=== PATIENT | male | born 1955 | race Asian ===

== ENCOUNTER 2017-11-08 05:17 | Day surgery (SDC) | payer OTHER ==
[2017-11-07 15:29] VITALS: BMI 21.4
[~2017-11-08 05:17] MED LIST: BUPIVACAINE HCL/PF 0.5% (5MG/ML) 10 ML VIAL IJ ONE; LIDOCAINE HCL 1%, 10 MG/ML (20ML VIAL) INF ONE
[2017-11-08] MEDS ORDERED: BUPIVACAINE HCL/PF 0.5% (5MG/ML) 10 ML VIAL ONE (13:55)
[2017-11-08] MEDS ORDERED: LIDOCAINE HCL 2% (20ML MULTI-DOSE VIAL) NR ONE (13:56)
[2017-11-08] MEDS ORDERED: LIDOCAINE HCL 1%, 10 MG/ML (20ML VIAL) ONE (13:57)
[2017-11-08] MEDS ORDERED: ROPIVACAINE HCL 0.5% 30ML VIAL ONE (14:27)
[2017-11-08] MEDS ORDERED: MIDAZOLAM HCL 2 MG/2 ML SINGLE DOSE VIAL ONE ×2 (14:28)
[2017-11-08] MEDS ORDERED: DEXAMETHASONE SOD PHOSPHATE 4 MG/1 ML VIAL ONE (14:47)
[2017-11-08] MEDS ORDERED: LIDOCAINE HCL 2% 100 MG/5 ML DISP.SYRIN ONE (14:47)
[2017-11-08] MEDS ORDERED: PROPOFOL 20 ML ONE ×2 (14:47→14:50)
[2017-11-08] MEDS ORDERED: SUCCINYLCHOLINE CHLORIDE 200 MG/10 ML VIAL ONE (16:20)
[2017-11-08] MEDS ORDERED: ceFAZolin SODIUM 1 GM VIAL IVPB ONE (16:30)
--- NOTE | 2017-11-08 16:32 | HP ---
[facility]ellite [facility] - Chief Complaint Chief Complaint: left wrist fx - Past Medical History Allergies/Adverse Reactions: Allergies Allergy/AdvReac Type Severity Reaction Status Date / Time No Known Allergies Allergy Verified 12/09/16 12:12 - Current Medications Current Medications: Home Medications Medication Instructions Recorded Simvastatin [Zocor -] 20 mg PO HS 09/06/13 Ibuprofen [Motrin -] 800 mg PO QID PRN 11/07/17 Levothyroxine [Synthroid -] 75 mcg PO DAILY 11/07/17 Linagliptin/Metformin HCl 1 each PO BID 11/07/17 [Jentadueto 2.5 mg-1000 mg Tab] Satellite Physical Exam - Physical Examination Vital Signs: Vital Signs Period Temp Pulse Resp BP Sys/[place] Pulse Ox Last 24 Hr 98.0 F 82 20 109/66 98 General Appearance: Well Nourished, Well Developed, Alert & Oriented x3 ENT: Clear Lung: Normal air movement Heart: Regular rate & rhythm Extremities: Other (left wrist- + swelling, + ttp, splint intact, nvi xrays show displaced distal radius fx) Neurological: Intact, Alert, Oriented Satellite Impression/Plan - Impression/Plan Impression: left distal radius fx Operative Procedure: left distal radius orif Date to be Performed: 11/08/17
[2017-11-08] MEDS ORDERED: oxyCODONE HCL 5 MG TABLET PO PRN (17:36)
[2017-11-08] MEDS ORDERED: ONDANSETRON 4 MG/2 ML VIAL IVPUSH PRN (17:36)
--- NOTE | 2017-11-08 17:40 | OP ---
Operative Note - Note: Operative Date: 11/08/17 ([facility]) Pre-Operative Diagnosis: left distal radius fx Operation: left distal radius orif Post-Operative Diagnosis: Same as Pre-op Surgeon: Sanjiv Hayes School Bus Driver/Mechanic: Abhi Gates Anesthesiologist/LEGAL BILLER: Norma Singh MD Anesthesia: General, Local Estimated Blood Loss (mls): 0 (tourniquet) Operative Report Dictated: Yes
[2017-11-08] MEDS ORDERED: ELECTROLYTE-148 SOLN 1,000 ML IV SCH (17:45)
[2017-11-08 18:28] VITALS: TEMP 98.2
--- NOTE | 2017-11-08 19:28 | SPEC ---
DATE OF OPERATION: 11/08/2017 PREOPERATIVE DIAGNOSIS: Comminuted displaced left distal radius fracture. POSTOPERATIVE DIAGNOSIS: Comminuted displaced left distal radius fracture. PROCEDURE: Left distal radius open reduction internal fixation. SURGEON: Sanjiv Sy M.D. TRANSPORTATION EQUIPMENT PAINTER: Ho Hernández ANESTHESIA: Left axillary block. DRAINS: None. COMPLICATIONS: None. SPECIMEN: None. BLOOD LOSS: None. BLOOD GIVEN: None. FLUID REPLACEMENT: 1000 mL Plasmalyte. INDICATION: This patient is a 62-year-old male with the preoperative diagnosis of a displaced angulated left distal radius fracture. After understanding the potential risks, complications, alternatives, benefits to surgery versus nonsurgical treatment, the patient elected to pursue this procedure. DESCRIPTION OF PROCEDURE: The entire case was done under 3.8 loupe magnification. Typical FCR approach was marked out with a marking pen and incision made with No. 15 scalpel blade. Subcutaneous hemostasis was achieved with a bipolar cautery. The radial artery was retracted gently in a radial direction and ulnar to this, using a fresh No. 15 scalpel blade, the muscular fascia was incised. Blunt dissection was done with my index finger down to the volar aspect of the distal radius. Weitlaner retractors were placed deep into the wound for visualization. A periosteal elevator was used to do subperiosteal dissection exposing the fracture site. There was a main transverse component to the distal radius fracture but in addition there were several pieces, some extending towards the radial carpal joint and some towards the distal radial ulnar joint. The fracture site was copiously irrigated and washed out. All debris including hematoma and muscle were removed. A provisional reduction was performed and seemed to come together quite nicely. There was a small metaphyseal defect. X-rays were taken in A-P and lateral planes documenting excellent position of the fracture fragments, restoring radial height inclination and volar tilt. Next a standard [employer] left volar low profile DVR plate was placed on the volar aspect of the distal radius. Two K-wires were placed and x-rays were taken documenting excellent position, length and subchondral position. Next the central 3.5 mm screw was placed in a standard fashion, this was 16 mm in length, and the second-most ulnar proximal row screw was placed. This was a 24 mm partially threaded locking screw. X-rays again were taken documenting excellent position and support of the subchondral bone. The rest of the screws were then put in, first 2 additional purple proximal screws of 16 and 14 mm in length for 6 cortices proximally and then the silver drill bit was used to put in the remaining 6 screws of both the proximal and distal row from 16 mm to 24 mm of length, all partially threaded locking screws. All of the guides were removed and passed off the field. Final x-rays were taken in A-P and lateral planes. I was quite happy with the fracture reduction position, position of the radial carpal joint, distal radial ulnar joint length, height and tilt. Tourniquet time was 50 minutes. No complications during the case. Patient was brought to the ambulatory recovery in stable condition. SANJIV SY M.D. [id number]
[2017-11-08 19:36] VITALS: BP 137/85; PULSE 84
== END 2017-11-08 20:05 | disposition home or self-care (01) ==
LOC: JASU-SURG 05:17
PROVIDERS: ATTEND Orthopaedic Surgery
PROC: 0PSJ04Z Reposition Left Radius with Internal Fixation Device, Open Approach (ICD-10-PCS; principal; 2017-11-08 15:30)
DX: S52.592A Other fractures of lower end of left radius, initial encounter for closed fracture (principal); X58.XXXA Exposure to other specified factors, initial encounter; Y93.9 Activity, unspecified; Y92.9 Unspecified place or not applicable; Y99.9 Unspecified external cause status
CPT/HCPCS: 76000-TC; 82962; 94760

== ENCOUNTER 2023-08-29 05:02 | Day surgery (SDC) | payer OTHER ==
[2023-08-26 08:51] VITALS: BMI 20.7
[~2023-08-29 05:02] MED LIST changes: +BUPIVACAINE HCL 0.5% 250 MG/50 ML VIAL NR ONE; -BUPIVACAINE HCL/PF 0.5% (5MG/ML) 10 ML VIAL IJ ONE; -LIDOCAINE HCL 1%, 10 MG/ML (20ML VIAL) INF ONE; +LIDOCAINE HCL 1%, 10 MG/ML (20ML VIAL) SQ ONE
[2023-08-29] MEDS ORDERED: ONDANSETRON 4 MG/2 ML VIAL IVPUSH PRN (09:26)
[2023-08-29] MEDS ORDERED: oxyCODONE HCL 5 MG TABLET PO PRN (09:26)
[2023-08-29] MEDS ORDERED: IBUPROFEN 800 MG/8 ML IJ IVPB PRN (09:26)
[2023-08-29] MEDS ORDERED: ACETAMINOPHEN 325 MG TABLET (FP) PO PRN (09:26)
[2023-08-29] MEDS ORDERED: LACTATED RINGERS SOLUTION 1,000 ML IV SCH (09:30)
[2023-08-29] MEDS ORDERED: LIDOCAINE HCL 1%, 10 MG/ML (20ML VIAL) ONE (09:59)
[2023-08-29] MEDS ORDERED: FENTANYL CITRATE/PF 50 MCG/ML VIAL ONE ×2 (10:50→12:52)
[2023-08-29] MEDS ORDERED: MIDAZOLAM HCL 2 MG/2 ML SINGLE DOSE VIAL ONE ×2 (10:50→12:52)
[2023-08-29] MEDS ORDERED: PROPOFOL 60 ML ONE (10:50)
[2023-08-29] MEDS ORDERED: ceFAZolin SODIUM 1 GM VIAL IVPB ONE (11:25)
[2023-08-29] MEDS ORDERED: LIDOCAINE HCL 1%, 10 MG/ML (20ML VIAL) SQ ONE (11:42)
[2023-08-29] MEDS ORDERED: BUPIVACAINE HCL 0.5% 250 MG/50 ML VIAL NR ONE (11:42)
[2023-08-29] MEDS ORDERED: PROPOFOL 20 ML ONE (12:49)
[2023-08-29 15:04] VITALS: RESP 18; TEMP 97.5
[2023-08-29 16:38] VITALS: BP 130/70; PULSE 75
== END 2023-08-29 16:00 | disposition home or self-care (01) ==
LOC: JASU-SURG 05:02
PROVIDERS: ATTEND Orthopaedic Surgery
PROC: 0JNJ0ZZ Release Right Hand Subcutaneous Tissue and Fascia, Open Approach (ICD-10-PCS; principal; 2023-08-29 10:30)
DX: M72.0 Palmar fascial fibromatosis [Dupuytren] (principal)
CPT/HCPCS: 82962; 88304-TC; 94760

== ENCOUNTER 2024-04-22 14:27 | Emergency (ER) | payer OTHER ==
[2024-04-22 14:36] VITALS: TEMP 98; BMI 20.3
[2024-04-22 16:33] LABS: BASO % 1.1 % (0-2.0); EOS % 2.3 % (0-4.5); HEMATOCRIT 41.1 % (35.4-49); HEMOGLOBIN 14.2 GM/dL (11.7-16.9); LYMPH % 38.4 % (8-40); MCH 32.4 pg (25.7-33.7); MCHC 34.5 g/dl (32.0-35.9); MEAN CELL VOLUME 94.1 fl (80-96); MEAN PLT VOLUME 7.7 fl (7.5-11.1); MONO % 7.9 % (3.8-10.2); NEUT % 50.3 % (42.8-82.8); PLATELET COUNT 269 10^3/uL (134-434); RBC 4.37 M/mm3 (4.00-5.60); RDW 14.6 % (11.9-15.9); WHITE BLOOD COUNT 7.2 K/mm3 (4.0-10.0)
[2024-04-22 16:46] LABS: POTASSIUM 4.3 mmol/L (3.5-5.1)
[2024-04-22 16:48] LABS: ALBUMIN 3.8 g/dl (3.4-5.0); BLOOD UREA NITROGEN 11.8 mg/dL (7-18); CALCIUM 9.1 mg/dL (8.5-10.1)
[2024-04-22 16:51] LABS: CREATININE 0.7 mg/dL (0.55-1.3)
[2024-04-22 16:53] LABS: BILIRUBIN,TOTAL 0.4 mg/dL (0.2-1); TOT PROT 7.1 g/dl (6.4-8.2)
[2024-04-22 21:25] VITALS: BP 126/75; PULSE 70; RESP 19
== END 2024-04-22 22:18 | disposition home or self-care (01) ==
LOC: JER 14:27
DX: R07.89 Other chest pain (principal)
CPT/HCPCS: 36415; 71045-TC-FY; 71275-TC; 80053; 83880; 84484; 85025; 85379; 93005; 93010; 99285-25; Q9967